=== PATIENT | female | born 1945 | race African-American/Black ===

== ENCOUNTER 2017-06-05 06:58 | Day surgery (SDC) | payer MEDICARE, OTHER ==
[~2017-06-05 06:58] MED LIST: KETOROLAC TROMETHAMINE 0.45% 4 DROP/0.4 ML DROPERETTE OD PRN
[2017-06-05] MEDS ORDERED: EPINEPHRINE INJ/PF 1 MG/1 ML AMPULE ONE (07:17)
[2017-06-05] MEDS ORDERED: CHONDR SU A NA/HYALUR INTRAOC KIT (SURGICARE) ONE (07:17)
[2017-06-05] MEDS ORDERED: TRYPAN BLUE 0.06 % OPH SOLN 0.5 ML DISP.SYRIN ONE (07:17)
[2017-06-05] MEDS ORDERED: LIDOCAINE 1% INJ-PF (10 MG/ML) 30 ML SDV ONE (07:18)
[2017-06-05] MEDS: TROPICAMIDE 1% OPH SOLN 3 ML OD PRN ×3 (07:19→07:39)
[2017-06-05] MEDS: TETRACAINE HCL 0.5% OPH SOLN 2 ML OD PRN ×3 (07:19→08:03)
[2017-06-05] MEDS: BESIFLOXACIN HCL 0.6% OPH SUSP 5 ML BOTTLE OD PRN ×3 (07:19→08:28)
[2017-06-05] MEDS: CYCLOPENTOLATE 0.2%/PHENYLEPHRINE 1% OPH SOLN 2 ML OD PRN ×3 (07:19→07:39)
[2017-06-05] MEDS ORDERED: MIDAZOLAM 2 MG/2 ML INJ ONE (07:30)
--- NOTE | 2017-06-05 18:23 | DISCHARGE SUMMARY E ---
Discharge Summary NAME: MILI BOYD : 1945 AGE: 71Y ADMITTED: 06/05/2017 DISCHARGED: 06/05/2017 REASON FOR ADMISSION: This is a 71-year-old patient who underwent cataract extraction of the right eye. DIAGNOSIS: Cataract, right eye. HISTORY AND HOSPITAL COURSE: The patient underwent surgery because she was having difficulty driving at night secondary to glare. The patient should be on a regular diet. No bending at the waist. No heavy lifting. They should use her Besivance, Ilevro, and Durezol at 3:00 p.m. and 8:00 p.m. and sleep with a rigid shield, and I will see them for a 1-day postoperative tomorrow. DICTATING PHYSICIAN: MICHAEL PEREIRA M.D. [id number] PHY#: [id number] ID: [id number] JOB#: [id number] ACCT: [id number] cc:MICHAEL PEREIRA M.D. >
--- NOTE | 2017-06-05 18:23 | [facility] OPERATIVE REPORT E ---
[facility] Operative Report NAME: MILI BOYD AGE: 71Y DATE OF SURGERY: 06/05/2017 ROOM: PREOPERATIVE DIAGNOSIS: CATARACT, RIGHT EYE. POSTOPERATIVE DIAGNOSIS: CATARACT, RIGHT EYE. OPERATION: Cataract extraction with intraocular lens implant of the right eye. SURGEON: MICHAEL PEREIRA M.D. ANESTHESIA: Topical. PROCEDURE: After obtaining appropriate consent, the patient's right eye was prepped and draped in sterile fashion as well as the surgeon in a sterile manner and cataract surgery was started. First a paracentesis blade was used to make a small side-port incision. Viscoelastic was used to inflate the anterior chamber. Next a 2.4 mm incision was made with the paracentesis blade. A continuous capsulorrhexis incision was made using a cystotome and Utrata forceps. Following this hydrodissection was carried out to make the lens fully loose and mobile and it was rotated 90 degrees. Following this, a emryhd-vfm-fskyekv technique was used to phacoemulsify the lens with a CDE of 9.41. The remaining cortex was removed with irrigation/aspiration. Provisc was instilled into the capsular bag to inflate the bag. A SN60WF, 21.0 diopter lens was placed. The remaining viscoelastic material was removed with irrigation/aspiration. Following this, a 10-0 nylon suture was used to close the incision and it was found to be watertight. Vigamox was instilled in the eye and a protective shield was placed over the eye. The patient returned to the postoperative recovery in stable condition. DICTATING PHYSICIAN: MICHAEL PEREIRA M.D. [id number] PHY#: [id number] ID: [id number] JOB#: [id number] ACCT: [id number] cc:MICHAEL PEREIRA M.D. >
== END 2017-06-05 09:20 | disposition home or self-care (01) ==
LOC: SC 06:58
PROVIDERS: ATTEND Internal Medicine
PROC: 08RJ3JZ Replacement of Right Lens with Synthetic Substitute, Percutaneous Approach (ICD-10-PCS; principal; 2017-06-05 08:00)
DX: H25.89 Other age-related cataract (principal); Z96.1 Presence of intraocular lens; I10 Essential (primary) hypertension; E11.9 Type 2 diabetes mellitus without complications
CPT/HCPCS: 66984; 82962; V2632; J2250; J3490 ×2; A9270; J0171; 142

== ENCOUNTER → 2017-06-11 | Outpatient (CLI) | payer MEDICARE, OTHER ==
--- NOTE | 2017-06-11 11:55 | RADIOLOGY REPORT (SQ) ---
EXAM DESCRIPTION: HIP LEFT AP/LATERAL COMPLETED DATE/TIME: 06/11/2017 10:39 am REASON FOR STUDY: PAIN IN LEFT HIP M25.552 PAIN IN LEFT HIP COMPARISON: None. NUMBER OF VIEWS: Two views. TECHNIQUE: AP pelvis and additional frog-leg view of the left hip. LIMITATIONS: None. FINDINGS: MINERALIZATION: Normal. LEFT HIP: No fracture or dislocation. No worrisome bone lesions. RIGHT HIP: No fracture or dislocation. No worrisome bone lesions. PUBIS AND ISCHIUM: No fracture. PELVIS: No fracture. SACRUM: No fracture or dislocation. No worrisome bone lesions. LOWER LUMBAR SPINE: Facet arthropathy is seen in the lower lumbar spine. SOFT TISSUES: No findings. OTHER: No other significant finding. IMPRESSION: Normal hip. Facet arthropathy lower lumbar spine TECHNICAL DOCUMENTATION: JOB ID: [id number] [employer]- All Rights Reserved
== END ==
LOC: OD 10:13
PROVIDERS: ATTEND Family Medicine
DX: M25.552 Pain in left hip (principal)

== ENCOUNTER → 2017-08-04 | Outpatient (CLI) | payer MEDICARE ==
--- NOTE | 2017-08-04 15:46 | WOMENS IMAGING REPORT ---
EXAM DESCRIPTION: BONE DENSITY HIP/SPINE COMPLETED DATE/TIME: 08/04/2017 9:11 am REASON FOR STUDY: OSTEOPROSIS; M81.0 M81.0 AGE-RELATED OSTEOPOROSIS W/O CURRENT PATHOLOGICAL FRAC COMPARISON: None. TECHNIQUE: Dual-Energy X-ray Absorptiometry (DEXA) of the AP Spine and Hip. LIMITATIONS: None. FINDINGS: LUMBAR SPINE: The bone mineral density (BMD) measured from L1-L4 in the AP projection correlates with a T-score of -0.8, which is normal as defined by the World Health Organization. HIP: The bone mineral density (BMD) measured in the left hip correlates with a T-score of -1.6, which is o steopenia as defined by the World Health Organization. IMPRESSION: 1. LUMBAR SPINE: NORMAL. 2. HIP: OSTEOPENIA. COMMENT: The World Health Organization defines low BMD as follows: T-score: Normal: Greater than -1.0 Osteopenia: Between -1.0 and -2.5 Osteoporosis: Less than -2.5 without fractures Established osteoporosis: Less than -2.5 with fractures In general, you may wish to consider: Diagnosis Treatment Follow-up DEXA Normal BMD Prevention 2-3 years Osteopenia Prevention/Therapy 1-2 years Osteoporosis Therapy Yearly TECHNICAL DOCUMENTATION: JOB ID: [id number] [employer]- All Rights Reserved
== END ==
LOC: WI 08:50
PROVIDERS: ATTEND Physician Assistant Surgical
DX: M81.0 Age-related osteoporosis without current pathological fracture (principal)
CPT/HCPCS: 77080

== ENCOUNTER → 2019-09-26 | Outpatient (CLI) | payer MEDICARE, OTHER ==
--- NOTE | 2019-09-27 09:05 | RADIOLOGY REPORT (SQ) ---
EXAM DESCRIPTION: MRI LUMBAR SPINE WITHOUT COMPLETED DATE/TIME: 09/26/2019 2:48 pm REASON FOR STUDY: M54.5 LOW BACK PAIN COMPARISON: None. TECHNIQUE: Sagittal and Axial imaging includes T1, T2, STIR and gradient echo sequences. Coronal T2/ HASTE imaging. LIMITATIONS: None. FINDINGS: VISUALIZED UPPER ABDOMEN: Limited evaluation. No acute or suspicious findings suggested. There are bilateral parapelvic cyst. SEGMENTATION: No transitional anatomy. The lowest well-developed disc space is labeled L5-S1. ALIGNMENT: Anatomic. VERTEBRAE: Intact. BONE MARROW: Normal. No marrow replacement or reactive changes. DISC SIGNAL: Loss of normal water signal at L3-L4, L4-L5 and L5-S1 consistent with desiccation. POSTERIOR ELEMENTS: Generally intact. No pars defect evident. HARDWARE: None in the spine. CORD AND CONUS: Normal in size and signal intensity. Conus at the appropriate level. SOFT TISSUES: No aortic aneurysm seen. No bulky retroperitoneal adenopathy or mass. No paraspinal mas s or fluid. L1-L2: No significant spinal stenosis or exit foraminal stenosis. L2-L3: No significant spinal stenosis or exit foraminal stenosis. L3-L4: No significant central canal stenosis. Mild facet arthropathy. There is asymmetric narrowing of the right lateral recess. L4-L5: There is a broad-based disc/ osteophyte complex with a focal central protrusion. There is christi ateral facet arthropathy. There is bilateral foraminal stenosis. There is moderate central stenosis . L5-S1: Broad-based annular disc bulge with bilateral facet arthropathy. There is asymmetric narrowin g of the left neural foramina. LOWER THORACIC: Incompletely imaged. No stenosis seen. SACRUM: Visualized upper sacrum intact. OTHER: No other significant findings. IMPRESSION: 1. Broad-based disc/ osteophyte complex at L4-L5 with a central protrusion. There is bi lateral foraminal stenosis. There is bilateral facet arthropathy. There is moderate central stenosi s. 2. Broad-based annular disc bulge with bilateral facet arthropathy at L5-S1. Marked asymmetric narr owing of the left neural foramina with impingement on the exiting nerve root. TECHNICAL DOCUMENTATION: JOB ID: [id number] [employer]- All Rights Reserved Reading location - IP/workstation name: [email or web address]
== END ==
LOC: RAD 14:11
PROVIDERS: ATTEND Orthopaedic Surgery
DX: M51.27 Other intervertebral disc displacement, lumbosacral region (principal); M48.061 Spinal stenosis, lumbar region without neurogenic claudication
CPT/HCPCS: 72148

== ENCOUNTER → 2019-11-12 | Outpatient (CLI) | payer MEDICARE, OTHER ==
--- NOTE | 2019-11-12 11:06 | RADIOLOGY REPORT (SQ) ---
EXAM DESCRIPTION: CHEST PA/LATERAL COMPLETED DATE/TIME: 11/12/2019 10:56 am REASON FOR STUDY: COUGH COMPARISON: 05/24/16. EXAM PARAMETERS: NUMBER OF VIEWS: two views TECHNIQUE: Digital Frontal and Lateral radiographic views of the chest acquired. RADIATION DOSE: NA LIMITATIONS: none FINDINGS: LUNGS AND PLEURA: No opacities, masses or pneumothorax. No pleural effusion. MEDIASTINUM AND HILAR STRUCTURES: No masses or contour abnormalities. HEART AND VASCULAR STRUCTURES: Heart normal size. No evidence for failure. BONES: No acute findings. HARDWARE: None in the chest. OTHER: No other significant finding. IMPRESSION: No focal airspace disease or other evidence of acute intrathoracic process. TECHNICAL DOCUMENTATION: JOB ID: [id number] 2010 [employer]- All Rights Reserved Reading location - IP/workstation name: [email or web address]
== END ==
LOC: OD 10:34
PROVIDERS: ATTEND Family Medicine
DX: R05 Cough (principal)
CPT/HCPCS: 71046